=== PATIENT | female | born 1975 | race Caucasian/White ===

== ENCOUNTER → 2017-06-29 | Outpatient (CLI) | payer OTHER ==
--- NOTE | 2017-07-02 10:34 | Diagnostic Imaging Report ---
INDICATION: Screening mammogram. COMPARISON: None, baseline. TECHNIQUE: Digital screening mammography was obtained with CAD with 3-dimensional tomosynthesis. FINDINGS: Scattered fibroglandular densities are present. There is no mass or suspicious calcification. IMPRESSION: Negative baseline mammogram. No malignancy. ACR BI-RADS Category 1: Negative. Result letter will be mailed to the patient. Note: At least 10% of breast cancer is not imaged by mammography. Dictated by: Dictated on workstation # [id number]
== END ==
LOC: RAD 09:51
PROVIDERS: ATTEND Family Medicine
DX: Z12.31 Encounter for screening mammogram for malignant neoplasm of breast (principal)
CPT/HCPCS: 77067

== ENCOUNTER → 2018-04-05 | Outpatient (CLI) | payer OTHER ==
--- NOTE | 2018-04-05 14:20 | Diagnostic Imaging Report ---
PROCEDURE: US Thyroid. TECHNIQUE: Multiple real-time grayscale images were obtained of the thyroid in various projections. INDICATION: Thyromegaly. COMPARISON: There are no prior studies available for comparison. FINDINGS: The thyroid gland is not enlarged. The right lobe measures 4.2 x 1.1 x 1.2 cm while the left lobe is estimated to be 3.8 x 1.3 x 1.0 cm. There is no evidence for a solid or cystic mass within either lobe, but each lobe of the thyroid is somewhat heterogeneous. IMPRESSION: 1. The thyroid gland is not enlarged. There is no discrete solid or cystic mass within either lobe either. 2. If further imaging evaluation of the function of the thyroid gland is desired, then a nuclear medicine thyroid scan should be considered. Dictated by: Dictated on workstation # [id number]
== END ==
LOC: RAD 12:28
PROVIDERS: ATTEND Nurse Practitioner Family
DX: E01.0 Iodine-deficiency related diffuse (endemic) goiter (principal)
CPT/HCPCS: 76536

== ENCOUNTER → 2019-07-29 | Outpatient (CLI) | payer OTHER ==
--- NOTE | 2019-07-29 12:46 | Diagnostic Imaging Report ---
Indication: Pain along the lateral aspect of the left foot. Time of exam: 12:25 PM 3 views left foot were obtained. The metatarsals are intact. No periosteal reaction or stress reaction is identified. The phalanges are intact. Midfoot and hindfoot are unremarkable. No fractures are seen. Impression: No acute bony abnormality is detected. Dictated by: Dictated on workstation # [id number]
== END ==
LOC: RAD 12:12
PROVIDERS: ATTEND Nurse Practitioner Family
DX: M79.672 Pain in left foot (principal)
CPT/HCPCS: 73630

== ENCOUNTER → 2021-09-09 | Outpatient (CLI) | payer OTHER ==
--- NOTE | 2021-09-12 11:08 | Diagnostic Imaging Report ---
INDICATION: Routine screening. COMPARISON: 06/29/2017. TECHNIQUE: 2D and 3D bilateral screening mammography was performed with CAD. FINDINGS: Both breasts are heterogeneously dense, limiting the sensitivity of mammography. There are occasional benign calcifications. No mass or malignant appearing microcalcifications are seen. The axillae are unremarkable. IMPRESSION: No mammographic features suspicious for malignancy are identified. ACR BI-RADS Category 2: Benign findings. Result letter will be mailed to the patient. Note: At least 10% of breast cancer is not imaged by mammography. Dictated by: Dictated on workstation # [id number]
== END ==
LOC: RAD 13:30
PROVIDERS: ATTEND Family Medicine
DX: Z12.31 Encounter for screening mammogram for malignant neoplasm of breast (principal)
CPT/HCPCS: 77063; 77067

== ENCOUNTER → 2021-11-23 | Outpatient (CLI) | payer OTHER | LOC: LABNPT 09:39 | PROVIDERS: ATTEND Family Medicine | DX: Z20.822 Contact with and (suspected) exposure to COVID-19 (principal) | CPT/HCPCS: 87636 ==

== ENCOUNTER → 2022-04-26 | Outpatient (CLI) | payer OTHER ==
[2022-04-26 09:59] VITALS: BP 127/79
== END ==
LOC: CARD 09:00
PROVIDERS: ATTEND Family Medicine
DX: R07.9 Chest pain, unspecified (principal)
CPT/HCPCS: 93017; 93306

== ENCOUNTER → 2022-11-01 | Outpatient (CLI) | payer OTHER ==
--- NOTE | 2022-11-01 12:13 | Diagnostic Imaging Report ---
INDICATION: Routine screening. COMPARISON: 09/09/2021 and 06/29/2017. TECHNIQUE: 2D and 3D bilateral screening mammography was performed with CAD. FINDINGS: Both breasts are heterogeneously dense, limiting the sensitivity of mammography. The parenchymal pattern is stable. There are benign calcifications. No mass or malignant appearing microcalcifications are seen. The axillae are unremarkable. IMPRESSION: No mammographic features suspicious for malignancy are identified. ACR BI-RADS Category 2: Benign findings. Result letter will be mailed to the patient. Note: At least 10% of breast cancer is not imaged by mammography. Dictated by: Dictated on workstation # [id number]
== END ==
LOC: RAD 07:45
PROVIDERS: ATTEND Family Medicine
DX: Z12.31 Encounter for screening mammogram for malignant neoplasm of breast (principal)
CPT/HCPCS: 77063; 77067

== ENCOUNTER → 2022-11-28 | Outpatient (CLI) | payer SELFPAY ==
--- NOTE | 2022-11-28 17:58 | Diagnostic Imaging Report ---
EXAMINATION: CT calcium scoring without contrast. TECHNIQUE: Multiple contiguous axial images were obtained through the chest without the use of intravenous contrast for purposes of calcium scoring. All CT scans use one or more of the following dose optimizing techniques: automated exposure control, MA and/or KvP adjustment based on patient size and exam type or iterative reconstruction. HISTORY: Coronary artery disease COMPARISON: None available. FINDINGS: The calculated coronary artery calcium score is 0. Heart size is normal. No pericardial effusion. Aorta is normal in caliber. No lymphadenopathy is seen in the chest. IMPRESSION: 1. Calculated coronary artery calcium score of 0. Dictated by: Dictated on workstation # [id number]
== END ==
LOC: RAD 12:27
PROVIDERS: ATTEND Family Medicine
DX: I25.10 Atherosclerotic heart disease of native coronary artery without angina pectoris (principal)
CPT/HCPCS: 75571

== ENCOUNTER 2023-05-02 06:39 | Outpatient (CLI) | payer OTHER ==
[~2023-05-02] VITALS: Ht 154.9 cm; Wt 62.3 kg
[2023-05-03] MEDS ORDERED: SPIR100T4 PO (11:35)
[2023-05-03] MEDS ORDERED: LEVO75CA5 PO (11:35)
[2023-05-03] MEDS ORDERED: OMEP40CA6 PO (11:35)
[2023-05-03] MEDS ORDERED: MELO15TA39 PO (11:35)
[2023-05-03] MEDS ORDERED: CHOL500050 PO (11:35)
[2023-05-03] MEDS ORDERED: SENN-234 PO (11:35)
[2023-05-03] MEDS ORDERED: PROP10TA8 PO (11:35)
== END 2023-05-03 11:43 | disposition home or self-care (01) ==
LOC: PREOP 06:39
PROVIDERS: ATTEND Internal Medicine
DX: Z01.818 Encounter for other preprocedural examination (principal)

== ENCOUNTER 2023-05-11 09:53 | Day surgery (SDC) | payer BC, OTHER ==
--- NOTE | 2023-05-01 16:21 | HISTORY AND PHYSICAL ---
COLONOSCOPY SUMMARY HISTORY OF PRESENT ILLNESS: The patient is a 47-year-old white female referred by Dr. Ta for her first screening colonoscopy. She is deemed to be of average risk because she is not aware of any family history for colon cancer. She does tend toward constipation and occasionally will see some painless bright red blood on the toilet paper. PAST MEDICAL HISTORY: Significant for cardiomyopathy, roughly 17 years ago. There has been normalization of her heart function, reportedly normal ejection fraction on her last echo done 2 years ago. She has been feeling well, physically active with no exertional symptoms or change in exercise tolerance. She reports history of migraine headache and Marylu's thyroiditis. PAST SURGICAL HISTORY: Other than section she reports no other past surgeries. FAMILY HISTORY: Father is living at the age of 71 with bad glaucoma. Mother living at the age of 69 with hypertension, hyperlipidemia with known history of vascular disease. She does have one sister diagnosed with vascular disease at the age of 42. Other sisters alive and well with no reported health problems. 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 No past smoking history. No significant alcohol intake history. REVIEW OF SYSTEMS: CONSTITUTIONAL: Denies night sweats, chills, fever or change in weight. CARDIOVASCULAR: Denies chest pain, orthopnea, PND, or shortness of breath. PULMONARY: Denies cough, wheezing or shortness of breath. GASTROINTESTINAL: As noted in the HPI. PHYSICAL EXAMINATION: GENERAL: Reveals a white female, appeared to be in no acute distress. HEENT: Unremarkable. Sclerae nonicteric. VITAL SIGNS: Blood pressure 122/80. CHEST: Clear. CARDIOVASCULAR: Reveals regular rate and rhythm without murmur, S3, or S4. ABDOMEN: Soft, supple without mass, organomegaly, or tenderness. EXTREMITIES: Revealed no cyanosis, clubbing or edema. ASSESSMENT AND PLAN: 1. The patient is being set up for screening colonoscopy, deemed to be of average risk. Prep instructions were given and questions were answered. 2. History of cardiomyopathy, reportedly resolved the patient back to normal systolic cardiac function. No heart failure symptoms. Prep instructions were given and questions were answered. I thank you for the referral of this pleasant lady. Job ID: [id number] DocumentID: [id number] Dictated Date: 04/30/2023 16:53:12 Software Configuration Specialist Date: 04/30/2023 17:41:00 Dictated By: NICCI ARANA MD
[~2023-05-11] VITALS: Ht 154.9 cm; Wt 62.3 kg
[~2023-05-11 09:53] MED LIST: CHOL500050 PO; LEVO75CA5 PO; MELO15TA39 PO; OMEP40CA6 PO; PROP10TA8 PO; SENN-234 PO; SPIR100T4 PO
[2023-05-11] MEDS ORDERED: LACTATED RINGERS 1,000 ML IV STA (09:57)
--- NOTE | 2023-05-11 10:08 | Pre-Op Note & Conscious Sedat ---
Pre-Operative Progress Note Date H&P Reviewed: May 11, 2023 Time H&P Reviewed: 10:08 History & Physical: H&P Reviewed, Patient Examed, No changes noted Pre-Op Diagnosis: screening Moderate Sedation PreProcedure ASA Score 2 Airway Lungs Heart ASA score ASA 1: a normal healthy patient ASA 2: a patient with a mild systemic disease (mid diabetes, controlled hypertension, obesity ASA 3: a patient with a severe systemic disease that limits activity (angina, COPD, prior Myocardial infarction) ASA 4: a patient with an incapacitating disease that is a constant threat to life (CHF, renal failure) ASA 5: a moribund patient not expected to survive 24 hrs. (ruptured aneurysm) ASA 6: a declared brain- patient whose organs are being harvested. For emergent operations, add the letter E after the classification Mallampati Classification Grade 2 Sedation Plan Analgesia, Amnesia, Plan communicated to team members, Discussed options with patient/fam, Discussed risks with patient/fam The patient is an appropriate candidate to undergo the planned procedure, sedation, and anesthesia. The patient immediately re-assessed prior to indication. NICCI ARANA MD May 11, 2023 10:08
[2023-05-11 10:31] VITALS: BP 122/64
[2023-05-11] MEDS ORDERED: PROPOFOL INJECTION 50 ML IV ONE (11:01)
[2023-05-11 11:35] VITALS: BP 100/57
--- NOTE | 2023-05-11 11:39 | Progress Note-Post Operative ---
Post-Procedure Note Physician (s)/Chick Sexer (s) Physician NICCI ARANA MD Pre-Procedure Diagnosis Pre-Procedure Diagnosis: screening Post-Procedure Diagnosis Post-operative diagnosis: Prior to undergoing colonoscopy digital rectal evaluation was performed. Anal sphincter tone was normal and the perianal reflexes intact. No abnormalities noted on digital inspection anal canal distal rectal vault. The colonoscope was then inserted into the rectum and under direct visualization advanced to the cecum. The cecum was identified by identification of the ileocecal valve and cecal strap. Photographic documentation was obtained. A careful inspection was made as the colonoscope withdrawn. Quality the prep was good. Findings: There were no evidence for internal/external hemorrhoids. Findings compatible with melanosis coli were noted throughout the colon. The rectum was otherwise unremarkable. Present in the distal sigmoid colon was a sessile 5 mm polyp it was photographed and biopsied and ablated with hot forceps with no subsequent blood loss. The remainder the sigmoid colon descending colon splenic flexure transverse colon hepatic flexure ascending colon and cecum were unremarkable save for findings compatible with melanosis Coli. A/P 1. One 5 mm sessile polyp was removed via hot forceps from the distal sigmoid colon. As long as there are no surprises on histopathology report would advocate consideration for repeat screening colonoscopy in 10 years. Patient did have diffuse changes of melanosis coli with no other abnormalities being noted on today's colonoscopy. I thank you for the furl this pleasant lady sincerely, Nicci Arana MD. CC: NICCI Burton MD May 11, 2023 11:39
[2023-05-11 11:45] VITALS: BP 100/57
[2023-05-11 11:57] VITALS: BP 100/57
--- NOTE | 2023-05-11 14:11 | Anesthesia-General Post-Op ---
MAC Patient Condition Mental Status/LOC: Same as Preop Cardiovascular: Satisfactory Nausea/Vomiting: Absent Respiratory: Satisfactory Pain: Controlled Complications: Absent Post Op Complications Complications None Follow Up Care/Instructions Patient Instructions None needed. Anesthesiology Discharge Order Discharge Order Patient is doing well, no complaints, stable vital signs, no apparent adverse anesthesia problems. No complications reported per nursing. JENNIFER DUMONT CRNA May 11, 2023 14:11
== END 2023-05-11 12:05 | disposition home or self-care (01) ==
LOC: ENDO 09:53
PROVIDERS: ATTEND Internal Medicine
DX: Z12.11 Encounter for screening for malignant neoplasm of colon (principal); D12.5 Benign neoplasm of sigmoid colon; Z86.79 Personal history of other diseases of the circulatory system